=== PATIENT | female | born 1985 | race Caucasian/White ===

== ENCOUNTER 2017-12-28 05:40 | Inpatient (IN) | payer MEDICAID ==
[2017-12-28] MEDS ORDERED: AMPICILLIN 2 GM/NS (PMX) 100 ML (06:06)
[2017-12-28] MEDS ORDERED: METHYLERGONOVINE 0.2 MG INJ IM ×2 (06:30→08:30)
[2017-12-28] MEDS ORDERED: MISOPROSTOL 200 MCG TAB PR ×2 (06:30→08:30)
[2017-12-28] MEDS ORDERED: LIDOCAINE 1% (MPF) 30 ML INJ INJ (06:30)
[2017-12-28] MEDS ORDERED: CARBOPROST 250 MCG INJ IM ×2 (06:30→08:30)
[2017-12-28] MEDS ORDERED: BUTORPHANOL 2 MG INJ IV (06:30)
[2017-12-28] MEDS ORDERED: OXYTOCIN 30 UNITS/LR 500 ML IV ×2 (06:30→08:30)
[2017-12-28 06:34] LABS: ADD MAN DIFF? NO
[2017-12-28 06:40] LABS: BASOPHIL # 0.1 10^3/ul (0.0-0.1); BASOPHILS % 0.4 % (0.0-2.0); EOSINOPHILS # 0.1 10^3/ul (0.0-0.5); HEMATOCRIT 36.6 % (37.0-47.0); HEMOGLOBIN 12.4 g/dl (12.0-16.0); LYMPHOCYTES # 3.9 10^3/ul (0.8-2.9); LYMPHOCYTES % 28.6 % (15.0-51.0); MEAN CORPUSCULAR HEMOGLOBIN 30.1 pg (29.0-33.0); MEAN CORPUSCULAR HGB CONC 33.9 g/dl (32.0-37.0); MEAN CORPUSCULAR VOLUME 88.8 fl (82.0-101.0); MEAN PLATELET VOLUME 12.6 fl (7.4-10.4); MONOCYTE # 0.8 10^3/ul (0.3-0.9); MONOCYTES % 5.7 % (0.0-11.0); NEUTROPHIL # 8.5 10^3/ul (1.6-7.5); NEUTROPHILS % 63.2 % (39.0-77.0); PLATELET COUNT 172 10^3/UL (140-415); RED BLOOD COUNT 4.12 10^6/ul (4.20-5.40); RED CELL DISTRIBUTION WIDTH 14.1 % (11.5-14.5)
[2017-12-28 06:40] LABS: WHITE BLOOD COUNT 13.4 10^3/ul (4.8-10.8)
[2017-12-28] MEDS: OXYTOCIN 30 UNITS/LR 500 ML IV ×2 (06:43→06:58)
[2017-12-28] MEDS: AMPICILLIN 2 GM/NS (PMX) 100 ML IV (06:44)
[2017-12-28] MEDS: LACTATED RINGER'S 1,000 ML IV* ×3 (06:44→16:02)
[2017-12-28 06:59] LABS: INR 0.82; PROTIME 11.4 Sec (11.9-14.9); PT RATIO 0.9
[2017-12-28 07:00] LABS: PARTIAL THROMBOPLASTIN TIME 23.9 Sec (25.0-35.0)
[2017-12-28 07:28] LABS: HEPATITIS B SURFACE ANTIGEN NEGATIVE (NEGATIVE)
[2017-12-28] MEDS: DEXTROSE 5%-LR 1,000 ML IV ×2 (08:02→16:02)
[2017-12-28] MEDS ORDERED: ZOLPIDEM 5 MG TAB PO (08:30)
[2017-12-28] MEDS ORDERED: ACETAMINOPHEN 325 MG TAB PO (08:30)
[2017-12-28] MEDS ORDERED: DIBUCAINE 1% 30 GM OINT PR (08:30)
[2017-12-28] MEDS ORDERED: ONDANSETRON 4 MG INJ IV (08:30)
[2017-12-28] MEDS ORDERED: DIPHENHYDRAMINE 50 MG INJ IV (08:30)
[2017-12-28] MEDS ORDERED: OXYCODONE/ASPIRIN (4.88/325) TAB PO (08:30)
[2017-12-28] MEDS: WITCH HAZEL/GLYCERIN PAD PR (09:57)
[2017-12-28] MEDS: BENZOCAINE 20% 56 ML SPRAY TOP (09:57)
[2017-12-28] MEDS: LANOLIN 7 GM TUBE TOP (09:57)
[2017-12-28] MEDS ORDERED: AMPICILLIN 1 GM/NS (PMX) 50 ML IV (10:30)
[2017-12-28] MEDS: IBUPROFEN 600 MG TAB PO ×2 (12:00→18:00)
[2017-12-28 15:33] LABS: RAPID PLASMA REAGIN NONREACTIVE (NR)
[2017-12-28] MEDS: SENNA/DOCUSATE NA (8.6MG/50MG) TAB PO (20:47)
[2017-12-29] MEDS: LACTATED RINGER'S 1,000 ML IV* ×3 (00:02→16:02)
[2017-12-29] MEDS: DEXTROSE 5%-LR 1,000 ML IV ×3 (00:02→16:02)
[2017-12-29] MEDS: IBUPROFEN 600 MG TAB PO ×4 (06:25→23:35)
[2017-12-29 06:33] LABS: ADD MAN DIFF? NO
[2017-12-29 06:38] LABS: WHITE BLOOD COUNT 12.3 10^3/ul (4.8-10.8)
[2017-12-29 06:38] LABS: BASOPHIL # 0.1 10^3/ul (0.0-0.1); BASOPHILS % 0.4 % (0.0-2.0); EOSINOPHILS # 0.1 10^3/ul (0.0-0.5); EOSINOPHILS % 1.1 % (0.0-7.0); HEMATOCRIT 31.9 % (37.0-47.0); HEMOGLOBIN 10.9 g/dl (12.0-16.0); LYMPHOCYTES # 3.2 10^3/ul (0.8-2.9); LYMPHOCYTES % 26.1 % (15.0-51.0); MEAN CORPUSCULAR HGB CONC 34.2 g/dl (32.0-37.0); MEAN CORPUSCULAR VOLUME 90.6 fl (82.0-101.0); MEAN PLATELET VOLUME 12.1 fl (7.4-10.4); MONOCYTE # 0.7 10^3/ul (0.3-0.9); MONOCYTES % 5.4 % (0.0-11.0); NEUTROPHIL # 8.1 10^3/ul (1.6-7.5); NEUTROPHILS % 65.9 % (39.0-77.0); PLATELET COUNT 140 10^3/UL (140-415); RED BLOOD COUNT 3.52 10^6/ul (4.20-5.40); RED CELL DISTRIBUTION WIDTH 14.6 % (11.5-14.5)
[2017-12-29] MEDS: SENNA/DOCUSATE NA (8.6MG/50MG) TAB PO (09:33)
[2017-12-30] MEDS: DEXTROSE 5%-LR 1,000 ML IV (00:02)
[2017-12-30] MEDS: LACTATED RINGER'S 1,000 ML IV* (00:02)
[2017-12-30] MEDS: IBUPROFEN 600 MG TAB PO ×4 (05:15→18:28)
[2017-12-30] MEDS: MEASLES,MUMPS,RUBELLA VACCINE INJ SC* (09:45)
[2017-12-30] MEDS: DIPHTH/TET/ACEL PERTUSS (ADULT) 0.5 ML VIAL IM* (11:31)
[2017-12-31 12:41] LABS: RUBELLA ANTIBODY - IGM <20.00 AU/mL
== END 2017-12-30 19:00 | disposition home or self-care (01) | DRG 775 ==
LOC: OBT 05:40 → L-D 05:40 → OBT 06:00 → L-D 06:00 → PP1 08:04
PROVIDERS: Obstetrics & Gynecology
PROC: 10E0XZZ Delivery of Products of Conception, External Approach (ICD-10-PCS; principal; 2017-12-28)
DX: O69.1XX0 Labor and delivery complicated by cord around neck, with compression, not applicable or unspecified (principal); O77.0 Labor and delivery complicated by meconium in amniotic fluid; Z3A.38 38 weeks gestation of pregnancy; Z37.0 Single live birth; Z23 Encounter for immunization
CPT/HCPCS: 85025; 85610; 85730; 86592; 86762; 86850; 86900; 86901; 87340; 90715; 99464